=== PATIENT | male | born 1970 | race Caucasian/White ===

== ENCOUNTER 2020-09-04 16:09 | Inpatient (IN) ==
[2020-09-04] MEDS ORDERED: NS 0.9% 1000 ml BAG 1,000 ML IV ONE (16:17)
[2020-09-04 16:22] LABS: Hematocrit 29 % (42-52); Hemoglobin 8.7 g/dL (14.0-18.0); Mean Corpuscular HGB Conc 30 g/dL (31-36); Mean Corpuscular Hemoglobin 25 pg (27-31); Mean Corpuscular Volume 81 fL (80-94); Platelet Count 358 10^3/uL (150-450); Red Blood Count 3.53 10^6 /uL (4.18-5.48); Red Cell Distribution Width 22 % (10-15)
[2020-09-04] MEDS ORDERED: Cefepime 1 GM in Dextrose 1 GM/50 ML BAG IV ONE (16:23)
[2020-09-04] MEDS ORDERED: Vancomycin 1,000 MG in NS 0.9% 250 ml 250 ML IVPB ONE (16:23)
[2020-09-04 16:32] LABS: INR 1.55 (0.82-1.09)
[2020-09-04 16:40] LABS: Albumin 3.6 g/dL (3.2-5.2); Albumin/Globulin Ratio 1.2 (1-3); C Reactive Protein 230.73 mg/L (<8.01); Calcium 8.6 mg/dL (8.6-10.3); EGFR African American 110.9 (>60); EGFR Non-African American 91.7 (>60); Magnesium 1.9 mg/dL (1.9-2.7); Potassium 4.8 mmol/L (3.5-5.0); Total Bilirubin 0.6 mg/dL (0.2-1.0); Total Protein 6.6 g/dL (6.4-8.9)
[2020-09-04 16:41] LABS: Troponin I 0.01 ng/mL (<0.03)
[2020-09-04 16:43] LABS: Urine Appearance Clear; Urine Bacteria Absent (Absent); Urine Bilirubin Negative (Negative); Urine Blood 1+ (Negative); Urine Color Amber; Urine Glucose Negative (Negative); Urine Ketones Negative (Negative); Urine Nitrite Negative (Negative); Urine Protein 2+(100 mg/dL) (Negative); Urine Red Blood Cell Trace(0-2/hpf) (Absent); Urine Specific Gravity 1.021 (1.002-1.030); Urine Urobilinogen Negative (Negative); Urine White Blood Cell Trace(0-5/hpf) (Absent)
[2020-09-04 16:46] LABS: ABS Basophils 0.1 10^3/ul (0-0.2); ABS Lymphocytes 0.7 10^3/ul (1.0-4.8); ABS Monocytes 0.2 10^3/ul (0-0.8); Eosinophil % 0.3 %; Lymphocyte % 14.4 %; Nucleated Red Blood Cells % 0.2
[2020-09-04] MEDS ORDERED: NS 0.9% 1000 ml BAG 1,000 ML IV.FLUID IV ONE (16:59)
[2020-09-04 17:16] LABS: Activated Partial Thrombo Time 32.3 seconds (26.0-38.0)
[2020-09-04] MEDS ORDERED: Enoxaparin 40 MG/0.4 ML SYR SUBCUT SCH (21:00)
[2020-09-04] MEDS: NS 0.9% 1000 ml BAG 1,000 ML IV SCH (21:04)
[2020-09-05] MEDS: NS 0.9% 1000 ml BAG 1,000 ML IV SCH (04:52)
[2020-09-05] MEDS ORDERED: Cefepime 2 GM in Dextrose 2 GM/50 ML BAG IV SCH (05:00)
[2020-09-05 06:01] LABS: ABS Monocytes 0.1 10^3/ul (0-0.8); Eosinophil % 0.1 %; Hematocrit 22 % (42-52); Lymphocyte % 1.1 %; Mean Corpuscular HGB Conc 32 g/dL (31-36); Mean Corpuscular Hemoglobin 25 pg (27-31); Mean Corpuscular Volume 78 fL (80-94); Mean Platelet Volume 8.3 fL (7.4-10.4); Platelet Count 104 10^3/uL (150-450); Red Cell Distribution Width 21 % (10-15); White Blood Count 4.3 10^3/uL (3.5-10.8)
[2020-09-05 06:15] LABS: Calcium 7.4 mg/dL (8.6-10.3); EGFR African American 183.1 (>60); EGFR Non-African American 151.3 (>60); Potassium 4.3 mmol/L (3.5-5.0)
[2020-09-05 07:51] VITALS: BP 105/57
[2020-09-05] MEDS ORDERED: Aspirin EC 81 mg TAB.EC (enteric coated) PO SCH (09:00)
[2020-09-05 09:47] LABS: ABS Lymphocytes 0.1 10^3/ul (1.0-4.8); ABS Monocytes 0.1 10^3/ul (0-0.8); ABS Neutrophils 4.3 10^3/ul (1.5-7.7); Hematocrit 24 % (42-52); Hemoglobin 7.6 g/dL (14.0-18.0); Lymphocyte % 1.6 %; Mean Corpuscular HGB Conc 32 g/dL (31-36); Mean Corpuscular Hemoglobin 25 pg (27-31); Mean Corpuscular Volume 79 fL (80-94); Mean Platelet Volume 8.3 fL (7.4-10.4); Platelet Count 112 10^3/uL (150-450); Red Blood Count 3.06 10^6 /uL (4.18-5.48); Red Cell Distribution Width 22 % (10-15); White Blood Count 4.5 10^3/uL (3.5-10.8)
[2020-09-05 11:01] LABS: C Reactive Protein 207.36 mg/L (<8.01)
== END 2020-09-05 12:46 | disposition home or self-care (01) | DRG 663 ==
LOC: ED 16:09 → MEDTELE 18:31
PROVIDERS: ADMIT Internal Medicine; ATTEND Internal Medicine